=== PATIENT | female | born 2000 | race Caucasian/White ===

== ENCOUNTER 2021-01-21 11:01 | Emergency (ER) | payer BC ==
[~2021-01-21] VITALS: Ht 162.6 cm; Wt 86.4 kg
[2021-01-21 11:22] VITALS: BP 117/73
--- NOTE | 2021-01-21 11:41 | PHYS DOC ---
Past History Past Medical History: No Pertinent History Past Surgical History: No Surgical History Alcohol Use: None Adult General Chief Complaint Chief Complaint: HAND PROBLEM HPI HPI Patient is a 20-year-old female presenting for left hand pain. Reports onset of injury was approximately 3 hours prior to arrival. Patient was outside trying to get into the car when a lise of wind shut the car door on her hand. Reports focal tenderness over knuckles of second and third digit with subsequent pain over her fingers. 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 She has intact motor and sensory function, no neurologic deficits reported. She is otherwise healthy with no known medical issues, no medications on a daily basis Review of Systems Review of Systems Fourteen body systems of review of systems have been reviewed. See HPI for pertinent positives and negative responses, other shabazz all other systems are negative, non-pertinent or non-contributory Allergies Allergies Allergies Coded Allergies Type Severity Reaction Last Updated Verified No Known Drug Allergies 01/21/21 No Physical Exam Physical Exam Constitutional: Well developed, well nourished, no acute distress, non-toxic appearance. HENT: Normocephalic, atraumatic, bilateral external ears normal, oropharynx moist, no oral exudates, nose normal. Eyes: PERRLA, EOMI, conjunctiva normal, no discharge. Neck: Normal range of motion, no tenderness, supple, no stridor. Cardiovascular: Heart rate regular per monitor Lungs & Thorax: No respiratory distress or accessory muscle use, bilateral chest rise Abdomen: Abdomen soft, non-tender, bowel sounds present in all quadrants, no guarding or rebound, nonacute abdomen. Skin: Warm, dry, no erythema, no rash. Back: No tenderness, no CVA tenderness. Extremities: No cyanosis, no clubbing, tenderness over second and third left knuckles with mild soft tissue swelling present, no palpable or visual abnormalities, range of motion intact but painful during end phases of flexion, cap refill less than 3 seconds in all distal digits, formal evaluation of remaining left upper extremity such as shoulder, elbow, soft tissue compartments, and wrist unremarkable. No anatomical snuffbox tenderness Neurologic: Alert and oriented X 3, medial radial and ulnar nerves of left upper extremity intact, normal motor & sensory function, no focal deficits noted. Psychologic: Affect normal, judgement normal, mood normal. Current Patient Data Vital Signs Vital Signs Date Time Temp Pulse Resp B/P (MAP) Pulse Ox O2 Delivery O2 Flow Rate FiO2 01/21/21 11:22 98.1 77 16 117/73 (88) 98 Room Air EKG EKG [] Radiology/Procedures Radiology/Procedures EXAM: XR HAND_LEFT 3 VIEWS 01/21/2021 11:33 AM CLINICAL INDICATION: Shoulder and hand in car door, pain around second and third metacarpal COMPARISON: None TECHNIQUE: 3 views of the left hand FINDINGS: No acute fracture. Alignment is normal. Joint spaces are maintained. No soft tissue abnormality. IMPRESSION: No acute osseous abnormality. Electronically signed by: Karlee Oakley MD (01/21/2021 11:47 AM) [id number] Heart Score C/O Chest Pain: No Risk Factors: Risk Factors: DM, Current or recent (<one month) smoker, HTN, HLP, family history of CAD, obesity. Risk Scores: Risk Factors: DM, Current or recent (<one month) smoker, HTN, HLP, family history of CAD, obesity. Course & Med Decision Making Course & Med Decision Making Discussed with the patient all findings and diagnostic testing. I discussed most likely diagnosis of self-limiting musculoskeletal injury such as contusion to left hand. I discussed need for continued supportive care practices and I stressed need for close outpatient follow-up to review today's ER visit. Strict return precautions were also discussed at length with good understanding by patient. Patient voiced understanding and agreement with the plan. Patient knows to come back for repeat evaluation if concerning signs or symptoms present prior to outpatient follow-up. Hemodynamically stable, ambulatory and well- appearing at time of disposition. Dragon Disclaimer Dragon Disclaimer This electronic medical record was generated, in whole or in part, using a voice recognition dictation system. Departure Departure: Impression: Primary Impression: Contusion of hand including fingers Disposition: HOME / SELF CARE / HOMELESS Condition: STABLE Referrals: PCP,NO (PCP) Additional Instructions: It is likely that you have experienced a contusion to your hand that is causing you pain. The best treatment for this injury is continued range of motion to prevent a frozen joint. A Rest, Ice, Compression, Elevation (RICE) strategy may also be helpful in the acute phase. Please utilize Tylenol and/or ibuprofen as needed for pain control. Please follow up with your primary doctor. If any concerning signs or symptoms arise prior to outpatient follow-up please do not hesitate to come back for repeat evaluation. It was a pleasure to take care of you and I wish you the best going forward AUDELIA BUTLER DO Jan 21, 2021 11:41
--- NOTE | 2021-01-21 11:50 | RAD ---
EXAM: XR HAND_LEFT 3 VIEWS 01/21/2021 11:33 AM CLINICAL INDICATION: Shoulder and hand in car door, pain around second and third metacarpal COMPARISON: None TECHNIQUE: 3 views of the left hand FINDINGS: No acute fracture. Alignment is normal. Joint spaces are maintained. No soft tissue abnorm ality. IMPRESSION: No acute osseous abnormality. Electronically signed by: Karlee Oakley MD (01/21/2021 11:47 AM) [id number]
== END 2021-01-21 12:07 | disposition home or self-care (01) ==
LOC: ER 11:01
DX: S60.222A Contusion of left hand, initial encounter (principal); X58.XXXA Exposure to other specified factors, initial encounter; Y93.89 Activity, other specified; Y92.89 Other specified places as the place of occurrence of the external cause; Y99.8 Other external cause status
CPT/HCPCS: 73130; 99283-25